=== PATIENT | female | born 1965 | race Caucasian/White ===

== ENCOUNTER 2018-07-30 13:41 | Emergency (ER) | payer MEDICARE ==
[~2018-07-30] VITALS: Ht 160 cm; Wt 93.6 kg
[2018-07-30 13:44] VITALS: BP 169/83; PULSE 102; RESP 22; Ht 160 cm; Wt 93.6 kg
[2018-07-30] MEDS ORDERED: FLUC150T PO (17:03)
--- NOTE | 2018-07-30 17:09 | ERD ---
ER Documentation Chief Complaint Chief Complaint headache "heaviness"since 07/29@ 1900 had a stroke '07; no neurodeficits no HPI 53-year-old female presents with nonspecific sensation of dizziness and head "heaviness "for the last 2 days days. She has had some mild dysuria over the last week as well. She took Augmentin and finished it 3 days ago. She is slight amount of whitish discharge. She also has a history of recent insect bites this week. 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 Patient usually gets follow- up MRIs but is late for her MRI this year approximately 6 months. Patient denies vomiting, visual changes, deficits, significant headache. ROS All systems reviewed and are negative except as per history of present illness. Medications Home Meds Active Scripts Fluconazole* (Diflucan*) 150 Mg Tablet, 150 MG PO ONCE, #1 TAB Prov:BRYCE HOPPER MD 07/30/18 PMhx/Soc Medical and Surgical Hx: pt denies Medical Hx, pt denies Surgical Hx Hx Alcohol Use: No Hx Substance Use: No Hx Tobacco Use: No Smoking Status: Never smoker FmHx Family History: No diabetes, No coronary disease, No other Physical Exam Vitals Vital Signs Date Temp Pulse Resp B/P (MAP) Pulse Ox O2 O2 Flow FiO2 Time Delivery Rate 07/30/18 98.6 102 22 169/83 98 13:44 (111) Physical Exam Const: No acute distress Head: Atraumatic Eyes: Normal Conjunctiva. Eyes Gladis and extra ocular movements intact. ENT: Normal External Ears, Nose and Mouth. Neck: Full range of motion. No meningismus. Resp: Clear to auscultation bilaterally Cardio: Regular rate and rhythm, no murmurs Abd: Soft, non tender, non distended. Normal bowel sounds Skin: No petechiae or rashes Back: No midline or flank tenderness Ext: No cyanosis, or edema Neur: Awake and alert with normal gait. No appreciable focal neurologic deficits. Cranial nerves II through XII grossly intact. No cerebellar signs and no Romberg. Psych: Normal Mood and Affect Results 24 hrs Laboratory Tests Test 07/30/18 16:30 Urine Color MITESH Urine Clarity SLIGHTLY CLOUDY Urine pH 5.0 Urine Specific [place] 1.027 Urine Ketones TRACE mg/dL Urine Nitrite NEGATIVE mg/dL Urine Bilirubin NEGATIVE mg/dL Urine Urobilinogen 2+ mg/dL Urine Leukocyte Esterase NEGATIVE Radha/ul Urine Microscopic RBC 2 /HPF Urine Microscopic WBC 2 /HPF Urine Squamous Epithelial Cells FEW /HPF Urine Mucus FEW /HPF Urine Hemoglobin NEGATIVE mg/dL Urine Glucose NEGATIVE mg/dL Urine Total Protein NEGATIVE mg/dl Procedures/MDM Urine shows trace leukocytes and few white blood cells. Urine was sent for cult ure. PROCEDURE: CT HEAD WITHOUT CONTRAST CLINICAL INDICATION: 53 years of age, female. Headache. History of vascular ma lformation. TECHNIQUE: CT of the head was performed without IV contrast. Coronal and sagittal reformatted images were obtained from the axial source images. Images were reviewed on a high-resolution PACS workstation. DICOM images are available. Dose information: The estimated radiation dose (CTDIvol mGy) for each series in this exam is 39. The estimated cumulative dose (DLP mGy-cm) is 634. One or more of the following dose reduction techniques were used: - Automated exposure control. - Adjustment of the mA and/or kV according to patient size. - Use of iterative reconstruction technique. COMPARISON: CT and MRI brain from [facility] July 13, 2014 FINDINGS: BRAIN PARENCHYMA: There is a 1.5 x 1.5 x 1.8 cm hyperdense mass in the posterior brain stem involving the anny tegmentum centered on the facial colliculus that corresponds to the patient's known cavernoma. The appearance is unchanged from the prior CT and MRI brain from the [facility] performed July 13, 2014. Hyperdensit y likely represents a combination of calcium and hyperdense blood products that was also present previously. Negative for surrounding edema and negative for intraventricular hemorrhage. Aldrich-white matter differentiation is otherwise maintained. Negative for significant cerebral tissue loss. VENTRICLES AND EXTRA-AXIAL SPACES: Ventricles are proportionate to the sulci and appropriate for age. Midline is central. Basal cisterns are normal. No abnormal extra-axial fluid collections are identified. Negative for evidence of acute subarachnoid or extra-axial hemorrhage. VASCULATURE: Negative for significant intracranial atherosclerosis. VISUALIZED PARANASAL SINUSES AND MASTOID AIR CELLS: Visualized paranasal sinuses: Clear where visualized. Mastoid air cells: Clear. BONES: Postsurgical changes from a suboccipital craniotomy with a bone flap secured by hardware. SCALP: No significant abnormality. Additional comment: None. IMPRESSION: 1. 1.5 x 1.5 x 1.8 cm hyperdense mass in the posterior brainstem corresponds to the patient's known cavernoma and is unchanged from prior CT and MRI brain examinations performed at [facility] July 13, 2014. Hyperdensity within the mass likely represents calcification and micro hemorrhage. Negative for surrounding edema or intraventricular hemorrhage. Suggest further evaluation with follow-up MRI brain. 2. Status post suboccipital craniotomy with a bone flap secured by hardware. Findings were discussed with Dr Hopper by Dr. Zoe Blanco on July 30, 2018 at 4:26 pm PST. RPTAT: HCTS Rashid Blanco Physician Date Time Electronically viewed and signed by Rashid Blanco Physician on 07/30/2018 16:34 Declined any medication for pain. Results were discussed with patient. Patient is past due for her regular MRI for follow-up of her previous brainstem or anny lesion. Patient shows no signs or symptoms suggest acute bleeding, mass-effect, or additional concerning signs or symptoms. Follow-up MRI was offered but patient did not want to wait the several hours that it would take to perform it today. Patient counseled that she likely does need a arm MRI of its current signs or symptoms to not warrant emergency MRI. Patient agrees with outpatient follow-up. We will treat with Diflucan for her vaginal irritation status post Augmentin for dysuria. We will await continue antibiotics for UTI until urine culture results. Patient should return sooner for new or worsening symptoms otherwise with primary doctor and her neurologist as directed. The patient was stable with no new complaints during the ER course. Clinically, there is no current evidence to suggest meningitis, sepsis, acute abdomen, pneumonia, stroke, acute coronary syndrome, pulmonary embolism, aortic dissection or any other emergent condition appearing to require further evaluation or hospit alization. Patient counseled regarding my diagnostic impression and care plan. Prior to discharge all questions answered. Pt agrees with treatment plan and understands strict return precautions. Pt is instructed to follow up with primary care provider within 24-48 hours. Precautionary instructions provided including instructions to return to the ER if not improving or for any worsening or changing symptoms or concerns. Departure Diagnosis: Primary Impression: Headache Headache type: unspecified Headache chronicity pattern: unspecified pattern Intractability: not intractable Qualified Codes: R51 - Headache Condition: Stable Patient Instructions: Self-Care for Headaches Referrals: NO PRIMARY,CARE PHYSICIAN (PCP) Additional Instructions: Okay to get follow-up MRI as outpatient given no significant findings or changes compared to previous studies. You have declined to wait for MRI. Recheck with primary doctor or neurologist for regular follow-up. Recheck otherwise for new or worsening symptoms. Urine was sent for culture. Will call with abnormal results. Plenty of fluids at home. BRYCE HOPPER MD Jul 30, 2018 17:09
== END 2018-07-30 17:23 | disposition home or self-care (01) ==
LOC: FTE 13:41
DX: R51 Headache (principal); R30.0 Dysuria
CPT/HCPCS: 70450; 81001; 81003; 87086